=== PATIENT | male | born 1985 ===

== ENCOUNTER 2022-04-21 05:37 | Emergency (ER) | payer SELFPAY ==
[2022-04-21 08:34] VITALS: BP 127/72
--- NOTE | 2022-04-21 09:08 | XRay Report ---
CHEST 1 VIEW 04/21/2022 8:43 AM INDICATION / CLINICAL INFORMATION: chestpain. COMPARISON: None available. FINDINGS: SUPPORT DEVICES: None. HEART / MEDIASTINUM: No significant abnormality. LUNGS / PLEURA: No significant pulmonary or pleural abnormality. No pneumothorax. ADDITIONAL FINDINGS: No significant additional findings. IMPRESSION: 1. No acute findings. Signer Name: Pedro Pablo Cleveland DO Signed: 04/21/2022 9:04 AM Workstation Name: [id number]
--- NOTE | 2022-04-21 09:42 | Emergency Department Report ---
HPI - General Chief Complaint: Chest Pain Time Seen by Provider: 04/21/22 09:26 - HPI HPI: Room 40 The patient is a 37-year-old male presumably presenting with a chief complaint of chest pain. After confirming the patient's background information patient refuses to communicate with me during the history. Patient remained silent when I asked him how I could help him in the emergency department and what brought him in. I asked the patient if he would like to be evaluated but he remained silent. He did allow me to examine him but did not offer a history of his complaints. Per triage the patient has had chest pain for 3 days and denies shortness of breath. ED Past Medical Hx - Past Medical History Previous Medical History?: Yes Hx Hypertension: Yes Additional medical history: MVP - Surgical History Past Surgical History?: No Additional Surgical History: Left chest tube - Family History Family history: no significant - Social History Smoking Status: Current Every Day Smoker Substance Use Type: Alcohol ED Review of Systems ROS: Stated complaint: CHEST PAIN Other details as noted in HPI Comment: Unobtainable due to pts medical conditions Physical Exam - Physical Exam Vital Signs: Vital Signs 04/21/22 04/21/22 05:38 08:33 Temperature 98.1 F Pulse Rate 105 H 68 Respiratory 18 14 Rate Blood Pressure 146/87 Blood Pressure 127/72 [Right] O2 Sat by Pulse 98 Oximetry Physical Exam: GENERAL: The patient is well-developed well-nourished male lying on stretcher not appearing to be in acute distress. [] HEENT: Normocephalic. Atraumatic. Extraocular motions are intact. Patient has moist mucous membranes. NECK: Supple. Trachea midline CHEST/LUNGS: Clear to auscultation. There is no respiratory distress noted. HEART/CARDIOVASCULAR: Regular. There is no tachycardia. There is no gallop rub or murmur. ABDOMEN: Abdomen is soft, nontender. Patient has normal bowel sounds. There is no abdominal distention. SKIN: There is no rash. There is no edema. There is no diaphoresis. NEURO: The patient is initially asleep but awakens to tactile stimuli to become alert, and oriented. The patient has no focal neurologic deficits. The patient has normal speech. GCS 15 MUSCULOSKELETAL: There is no evidence of acute injury. ED Course Vital Signs 04/21/22 04/21/22 05:38 08:33 Temperature 98.1 F Pulse Rate 105 H 68 Respiratory 18 14 Rate Blood Pressure 146/87 Blood Pressure 127/72 [Right] O2 Sat by Pulse 98 Oximetry - Reevaluation(s) Reevaluation #1: 04/21/22 10:37 Patient refused add on labs and does not provide history. Patient leaving [facility] ED Medical Decision Making - Lab Data Result diagrams: 04/21/22 08:22 - Differential Diagnosis ACS, PE, pericarditis, GERD Critical care attestation.: If time is entered above; I have spent that time in minutes in the direct care of this critically ill patient, excluding procedure time. ED Disposition Clinical Impression: Chest pain Disposition: 07 LEFT AGAINST MEDICAL ADVICE Is pt being admited?: No Does the pt Need Aspirin: No Condition: Undetermined Instructions: Nonspecific Chest Pain, Adult Time of Disposition: 10:37 (Patient leaving [facility])
[2022-04-21 09:49] LABS: Alanine Aminotransferase 22 units/L (7-56); Albumin 4.8 g/dL (3.9-5); BUN/Creatinine Ratio 14; Blood Urea Nitrogen 13 mg/dL (9-20); Calcium 9.4 mg/dL (8.4-10.2); Hemolysis Index 10
[2022-04-21 10:55] LABS: Basophils % (Auto) 0.3 % (0.0-1.8); Eosinophils # (Auto) 0.2 K/mm3 (0.0-0.4); Eosinophils % (Auto) 2.8 % (0.0-4.3); Hematocrit 42.7 % (35.5-45.6); Hemoglobin 14.8 gm/dl (11.8-15.2); Lymphocytes # (Auto) 2.3 K/mm3 (1.2-5.4); Lymphocytes % (Auto) 35.8 % (13.4-35.0); Mean Corpuscular HGB Conc 35 % (32-34); Mean Corpuscular Volume 91 fl (84-94); Monocytes # (Auto) 0.6 K/mm3 (0.0-0.8); Monocytes % (Auto) 9.4 % (0.0-7.3); Platelet Count 222 K/mm3 (140-440); Red Blood Count 4.72 M/mm3 (3.65-5.03); Red Cell Distribution Width 13.9 % (13.2-15.2)
--- NOTE | 2022-04-21 14:45 | Electrocardiograph Report ---
[facility] Test Date: 2022-04-21 Test Time: 06:17:01 Pat Name: ARDEN FAUSTIN Department: Room: Gender: M [employer] Trainer: GIOVANA : 1985 Requested By: ED DOC Order Number: [id number] Reading MD: Jyotsna Garcia Measurements Intervals [place] Rate: 90 P: 63 [place]: 155 QRS: -67 QRSD: 102 T: 46 QT: 396 QTc: 485 Interpretive Statements Sinus rhythm Inferior infarct, old No previous ECG available for comparison Electronically Signed On 04-21-2022 14:44:52 EDT by Jyotsna Garcia
== END 2022-04-22 11:00 | disposition left against medical advice (07) ==
LOC: ED 05:37
DX: R07.89 Other chest pain (principal); I10 Essential (primary) hypertension; F17.200 Nicotine dependence, unspecified, uncomplicated; Z72.89 Other problems related to lifestyle; Z79.899 Other long term (current) drug therapy
CPT/HCPCS: 36415; 71045; 80053; 80320; 84484; 85025; 93005; 99284; G0480